=== PATIENT | male | born 1945 | race Caucasian/White ===

== ENCOUNTER 2024-01-25 13:27 | Emergency (ER) | payer MEDICARE, OTHER ==
[2024-01-25 13:44] LABS: BASOPHILS ABSOLUTE AUTO 0.03 K/uL (0.00-0.20); BASOPHILS PERCENT AUTO 0.6 % (0.0-2.0); EOSINOPHILS PERCENT AUTO 1.9 % (0.0-5.0); HEMATOCRIT 37.5 % (39.0-49.0); LYMPHOCYTES ABSOLUTE AUTO 1.76 K/uL (0.50-3.50); LYMPHOCYTES PERCENT AUTO 33.8 % (10.0-50.0); MEAN CORPUSCULAR HEMOGLOBIN 28.6 pg (28.2-33.3); MEAN CORPUSCULAR VOLUME 89.3 fL (84.0-98.0); MONOCYTES ABSOLUTE AUTO 0.39 K/uL (0.00-1.00); MONOCYTES PERCENT AUTO 7.5 % (2.0-14.0); NEUTROPHILS ABSOLUTE AUTO 2.93 K/uL (1.40-7.00); NEUTROPHILS PERCENT AUTO 56.2 % (45.0-80.0); PLATELET COUNT,PLT 204 K/uL (150-350); RED CELL DISTRIBUTION WIDTH 14.3 % (11.2-14.1); WHITE BLOOD CELL COUNT,WBC 5.2 K/uL (4.0-10.2)
[2024-01-25 14:09] LABS: ALBUMIN 3.5 g/dL (3.4-5.0); ANION GAP 10.7 meq/L (7-15); BILIRUBIN TOTAL 0.6 mg/dL (0.2-1.0); CALCIUM 8.8 mg/dL (8.5-10.1); CARBON DIOXIDE,CO2 27.3 mmol/L (21.0-32.0); EST CRCL DRUG DOSING (CG) 64.84 mL/min; MAGNESIUM 2.2 mg/dL (1.8-2.4); POTASSIUM,K 3.8 mmol/L (3.5-5.1)
[2024-01-25] MEDS: Meclizine 25 MG Tab PO ONE (14:50)
[2024-01-25] MEDS: Take Home: Meclizine HCl 25 MG, 6 Tab Pack PO ONE (15:57)
[2024-01-25 16:23] LABS: APPEARANCE,URINE SLIGHTLY CLOUDY; BILIRUBIN,URINE NEGATIVE (NEGATIVE); COLOR,URINE LIGHT YELLOW; GLUCOSE,URINE NEGATIVE (NEGATIVE); KETONES,URINE NEGATIVE (NEGATIVE); LEUKOCYTE ESTERASE,URINE NEGATIVE (NEGATIVE); NITRITE,URINE NEGATIVE (NEGATIVE); OCCULT BLOOD,URINE NEGATIVE (NEGATIVE); PROTEIN,URINE NEGATIVE (NEGATIVE); UROBILINOGEN,URINE 0.2 E.U./dL (0.2-1.0)
== END 2024-01-25 16:20 | disposition home or self-care (01) ==
LOC: LL.ED 13:27 → SUPCPDRO 13:27 → LL.ED 16:20
DX: R42 Dizziness and giddiness (principal)
CPT/HCPCS: 36415; 70450; 71046; 80053; 81003; 82947; 83735; 84484; 85025; 85379; 93005; 99284; A9270; 93010